=== PATIENT | male | born 1960 | race Caucasian/White ===

== ENCOUNTER → 2024-03-12 | Outpatient (CLI) | payer OTHER ==
[2024-03-12 10:39] LABS: African American GFR (CKD) >90 (>60 ml/min/1.73 sqM); Blood Urea Nitrogen 20 mg/dL (9-20); Non-African American GFR(CKD) >90 (>60 ml/min/1.73 sqM)
--- NOTE | 2024-03-12 13:45 | CT ---
EXAMINATION TYPE: CT abdomen pelvis w con DATE OF EXAM: 03/12/2024 COMPARISON: NONE HISTORY: 63-year-old male R1 0.12, LUQ pain, pt feels mass/bump (marked by BB) in abdomen. Weight los s. TECHNIQUE: Contiguous axial scanning of the abdomen and pelvis following administration of 100 ml Iso sage 300 IV contrast. Delayed images through the kidneys and coronal/sagittal reconstructions perform ed. CT DLP: 1837.30 mGycm Automated exposure control for dose reduction was used. FINDINGS: The heart is normal size without pericardial effusion. Mild emphysematous change in the vis ualized lower lungs. Some oral contrast the distal esophagus could reflect esophageal reflux. Liver borderline enlarged at 17.4 cm. No focal lesion. Portal venous system. No biliary ductal dilata tion. Cholecystectomy clips. Adrenal glands, kidneys, and pancreas within normal limits. Spleen borderline enlarged at 13.7 cm. A palpable marker is placed along the anterior left paramedian upper abdomen. No discrete underlying soft tissue abnormality or ventral abdominal wall hernia seen. Just above, there is slight anterior p rotuberance of the xiphoid process. Along the supraumbilical midline, there is a small fat-containing hernia measuring 4.3 cm craniocauda l by 2.9 cm wide throughout tiny 4 mm pinhole defect. No dilated small bowel, free fluid, or free air. Some nonspecific prominent fluid-filled small bowel loops lower abdomen which may be transient. No mesenteric or retroperitoneal adenopathy. Normal appendix. Mild overall stool burden. Sigmoid colonic diverticulosis. No pericolonic inflammato ry change. Bladder urine distended. Prostate gland enlargement measuring 5.8 cm wide with soft tissue impressing on the base of the bladder. No abnormal fluid collection in the pelvis. A couple prominent external iliac chain lymph nodes measuring up to 1.3 cm probably reactive/post inflammatory. Bones: Moderate to severe degenerative change of the hips. [facility] within the lower thoracic spine. Hype rtrophic facet arthropathy lumbar spine. Trace grade 1 retrolisthesis T12-L1 and L1-L2. IMPRESSION: 1. PALPABLE MARKER PLACED ALONG THE LEFT PARASAGITTAL ANTERIOR UPPER ABDOMEN. NO UNDERLYING DISCRETE SOFT TISSUE ABNORMALITY OR ABDOMINAL WALL HERNIA IS SEEN HERE. THERE IS SOME ANTERIOR PROTUBERANCE OF THE XIPHOID PROCESS JUST ABOVE THIS LEVEL. 2. SMALL SUPRAUMBILICAL FAT-CONTAINING VENTRAL ABDOMINAL WALL HERNIA MEASURING 4.3 CM EXTENDING THROU GH 4 MM PINHOLE DEFECT. 3. SIGMOID DIVERTICULOSIS WITHOUT ACUTE DIVERTICULITIS. 4. Prostatomegaly at 5.8 cm wide. Correlate with symptoms and with PSA values.
== END | disposition home or self-care (01) ==
LOC: RADCTMAIN 09:55
PROVIDERS: ATTEND Family Medicine
DX: K43.9 Ventral hernia without obstruction or gangrene (principal); K57.30 Diverticulosis of large intestine without perforation or abscess without bleeding; N40.0 Benign prostatic hyperplasia without lower urinary tract symptoms
CPT/HCPCS: 82565; 84520; 74177; 36415; Q9967

== ENCOUNTER → 2024-04-18 | Outpatient (CLI) | payer OTHER ==
--- NOTE | 2024-04-18 12:30 | CTL ---
EXAMINATION TYPE: CT Low Dose Lung DATE OF EXAM ORDERED: 04/18/2024 HISTORY: Current smoker, 40 pack-year history. Lung cancer screening CT DLP: 155.[address] CTDI: 4.2 mGy Automated exposure control for dose reduction was used. SCREENING VISIT: First screening visit COMPARISON: No direct comparisons TECHNIQUE: Low dose computed tomography scan was performed through the chest at 1 mm thick sections a nd reconstructed images in multiple planes at 1 mm and [address] DIAGNOSTIC QUALITY: Satisfactory FINDINGS: Nodules: Left lower lobe 4.5 mm solid pulmonary nodule adjacent to the major fissure (series 6, image 43). LUNGS: COPD: Severity: Mild upper lobe predominant centrilobular and paraseptal emphysematous changes. Fibrosis: Severity: None Lymph nodes: None Other findings: None RIGHT PLEURAL SPACE: Effusion: None Calcification: None Thickening: None Pneumothorax: None LEFT PLEURAL SPACE: Effusion: None Calcification: None Thickening: None Pneumothorax: None HEART: Heart Size: Normal Coronary Calcification: None Pericardial Effusion: None OTHER FINDINGS: Upper abdomen: Gallbladder is surgically absent. Bony thorax: No acute process. Mild multilevel degenerative disc disease. Supraclavicular region: None Other: None IMPRESSION: 1. Left lower lobe 4.5 mm solid pulmonary nodule. 2. Mild COPD changes. CT LUNG RAD AND CT CHEST RECOMMENDATION: Lung-Rad 2 Benign Appearance or Behavior: Continue annual sc reening with LDCT in 12 months. S Modifier (other clinically significant findings): None
== END | disposition home or self-care (01) ==
LOC: RADCTMAIN 10:48
PROVIDERS: ATTEND Family Medicine
DX: Z12.2 Encounter for screening for malignant neoplasm of respiratory organs (principal); R91.1 Solitary pulmonary nodule; J44.9 Chronic obstructive pulmonary disease, unspecified; F17.210 Nicotine dependence, cigarettes, uncomplicated
CPT/HCPCS: 71271

== ENCOUNTER 2024-07-04 08:27 | Day surgery (SDC) | payer OTHER ==
[2024-06-29 14:36] VITALS: BMI 29.0
[2024-07-04 09:05] VITALS: RESP 16; TEMP 97.3
[2024-07-04] MEDS: IV FLUID CONTINUATION 1,000 ML IV ONE (09:07)
[2024-07-04] MEDS: LACTATED RINGERS 1,000 ML IV SCH (09:13)
[2024-07-04 09:15] LABS: Glucose,Whole Blood 140 mg/dL (70-110)
[2024-07-04] MEDS ORDERED: LIDOCAINE 1% INJ 10MG/ML (20 ML MDV) ONE (09:45)
[2024-07-04] MEDS ORDERED: PROPOFOL 10 MG/ML 20 ML VIAL IV ONE (09:45)
--- NOTE | 2024-07-04 10:14 | P.PCN ---
Date of Procedure: 07/04/24 Procedure(s) Performed: Brief history: Patient is a pleasant 63-year-old white male scheduled for an elective upper endoscopy as well as colonoscopy as a part of evaluation of progressive weight loss, epigastric pain and screening for colon cancer Procedure performed: Esophagogastroduodenoscopy with biopsy Colonoscopy Preoperative diagnosis: Chronic epigastric pain/progressive weight loss Screening for colon cancer Anesthesia: MAC Procedure: After informed consent was obtained from the patient was brought into the endoscopy unit and IV sedation was administered by anesthesia under continuous monitoring. Initially upper endoscopy was done. The Olympus GF 160 video endoscope was inserted inserted into the mouth and esophagus intubated without any difficulty and was gradually advanced into the stomach and duodenum and carefully examined. The bulb and second part of the duodenum appeared normal. The scope was then withdrawn into the stomach adequately insufflated with air and upon careful examination the antrum had mild antral gastritis and biopsies were done from this area. Body, cardia and fundus appeared normal. The scope was then withdrawn into the esophagus. Small hiatal hernia noted. The GE junction was located at 40 cm to the incisors. It appeared regular with no eryt jan erosions or ulcerations. Proximal to the GE junction there was a 3 mm island of De La Cruz's appearing mucosa which was biopsied. Rest of the esophagus appeared normal. Patient tolerated the procedure well. At this time the patient continued to remain sedation. Initial digital rectal examination was normal. Olympus CF 160 video colonoscope was then inserted into the rectum and gradually advanced to the cecum without any difficulty. Careful examination was performed as the scope was gradually being withdrawn. The prep was fair.. The cecum, ascending colon, transverse colon, descending colon, sigmoid colon and rectum appeared normal. Scattered sigmoid diverticulosis. Retroflexion was performed in the rectum and no lesions were noted. Patient tolerated the procedure well. Impression: 1. Upper endoscopy revealed small hiatal hernia, mild antral gastritis and short segment De La Cruz's esophagus 2. Colonoscopy revealed scattered sigmoid diverticulosis but notes of colorectal neoplasia Recommendations: Findings of this examination were discussed with the patient as well as his family. Continue with omeprazole 20 mg daily and follow antireflux measures. He was advised to follow-up with the biopsy results. If the biopsy confirms the presence of De La Cruz's esophagus he can have repeat upper endoscopy in 3 years. Repeat screening colonoscopy in 10 years.
[2024-07-04 10:31] VITALS: BP 111/65; PULSE 74
== END 2024-07-04 10:48 | disposition home or self-care (01) ==
LOC: ORWHC2ENDO 08:27
PROVIDERS: ATTEND Internal Medicine Gastroenterology
CPT/HCPCS: 43239; 45378; 88305

== ENCOUNTER 2025-03-24 11:54 | Emergency (ER) | payer OTHER ==
[2025-03-24 12:17] VITALS: TEMP 98
--- NOTE | 2025-03-24 12:56 | ED ---
ENT HPI - General Chief complaint: ENT Stated complaint: Ear discomfort Time Seen by Provider: 03/24/25 12:53 Source: patient, RN notes reviewed Mode of arrival: ambulatory Limitations: no limitations - History of Present Illness Initial comments: 64-year-old male presenting for left ear pressure/pain x 3 days. States he feels as though there is wax in his ear that needs to be flushed out. Denies nasal congestion, cough, fevers, sore throat. - Related Data Home Medications Medication Instructions Recorded Confirmed Albuterol Inhaler [Ventolin Hfa 1 - 2 puff INHALATION Q6H PRN 06/29/24 07/04/24 Inhaler] Atorvastatin [Lipitor] 20 mg PO DAILY 06/29/24 07/04/24 Cyclobenzaprine [Flexeril] 10 mg PO HS 06/29/24 07/04/24 DULoxetine HCL [Drizalma Sprinkle] 60 mg PO DAILY 06/29/24 07/04/24 Dapagliflozin Propanediol [Farxiga] 5 mg PO DAILY 06/29/24 07/04/24 Gabapentin 800 mg PO TID 06/29/24 07/04/24 Omeprazole 40 mg PO DAILY 06/29/24 07/04/24 Tiotropium 2.5 Mcg/Puff [Spiriva 1 puff INHALATION DAILY 06/29/24 07/04/24 Respimat 2.5 Mcg] lisinopriL [Zestril] 5 mg PO DAILY 06/29/24 07/04/24 metFORMIN HCL 1,000 mg PO BID 06/29/24 07/04/24 Previous Rx's Medication Instructions Recorded Fluconazole [Diflucan] 150 mg PO ONCE #2 tab 02/20/25 Nystatin 100,000 Unit/ml Susp 5 ml PO QID #200 ml 02/20/25 [Mycostatin Oral Susp] Allergies Allergy/AdvReac Type Severity Reaction Status Date / Time No Known Allergies Allergy Verified 03/24/25 12:17 Review of Systems ROS Statement: Those systems with pertinent positive or pertinent negative responses have been documented in the HPI. ROS Other: All systems not noted in ROS Statement are negative. Past Medical History Past Medical History: COPD, Diabetes Mellitus, GERD/Reflux, Hyperlipidemia, Hypertension History of Any Multi-Drug Resistant Organisms: None Reported Past Surgical History: Cholecystectomy, Joint Replacement, Orthopedic Surgery, Tonsillectomy Additional Past Surgical History / Comment(s): both knees replaced Past Anesthesia/Blood Transfusion Reactions: No Reported Reaction Additional Past Anesthesia/Blood Transfusion Reaction / Comment(s): no blood transfusion Past Psychological History: No Psychological Hx Reported Smoking Status: Current every day smoker Past Alcohol Use History: None Reported Past Drug Use History: None Reported - Past Family History Mother Family Medical History: Cancer Additional Family Medical History / Comment(s): bone General Exam Limitations: no limitations General appearance: alert, in no apparent distress Head exam: Present: atraumatic, normocephalic, normal inspection Eye exam: Present: normal appearance, PERRL, EOMI. Absent: scleral icterus, conjunctival injection, periorbital swelling ENT exam: Present: normal exam, mucous membranes moist. Absent: TM's normal bilaterally (Left TM unable to be visualized due to copious amount of cerumen) Neck exam: Present: normal inspection. Absent: tenderness, meningismus, lymphadenopathy Respiratory exam: Present: normal lung sounds bilaterally. Absent: respiratory distress, wheezes, rales, rhonchi, stridor Cardiovascular Exam: Present: regular rate, normal rhythm, normal heart sounds. Absent: systolic murmur, diastolic murmur, rubs, gallop, clicks Neurological exam: Present: alert, oriented X3 Psychiatric exam: Present: normal affect, normal mood Skin exam: Present: warm, dry, intact, normal color. Absent: rash Course Vital Signs 03/24/25 12:16 Temperature 98.0 F Pulse Rate 89 Respiratory 18 Rate Blood Pressure 102/67 O2 Sat by Pulse 98 Oximetry Medical Decision Making - Medical Decision Making Was pt. sent in by a medical professional or institution (, PA, STOP ATTACHER, urgent care, hospital, or detention...) When possible be specific @ -No Did you speak to anyone other than the patient for history (EMS, parent, family, police, friend...)? What history was obtained from this source @ -No Did you review nursing and triage notes (agree or disagree)? Why? @ -I reviewed and agree with nursing and triage notes Were old charts reviewed (outside hosp., previous admission, EMS record, old EKG, old radiological studies, urgent care reports/EKG's, detention records)? Report findings @ -No old charts were reviewed Differential Diagnosis (chest pain, altered mental status, abdominal pain women, abdominal pain men, vaginal bleeding, weakness, fever, dyspnea, syncope, headache, dizziness, GI bleed, back pain, seizure, CVA, palpatations, mental health, musculoskeletal)? @ -Cerumen impaction, otitis media, otitis externa, mastoiditis EKG interpreted by me (3pts min.). @ -None X-rays interpreted by me (1pt min.). @ -None done CT interpreted by me (1pt min.). @ -None done U/S interpreted by me (1pt. min.). @ -None done What testing was considered but not performed or refused? (CT, X-rays, U/S, labs)? Why? @ -None What meds were considered but not given or refused? Why? @ -None Did you discuss the management of the patient with other professionals (professionals i.e. , PA, STOP ATTACHER, lab, RT, psych nurse, social media designer, import export manager, teacher, correction officer city or county jail, case monitor)? Give summary @ -No Was smoking cessation discussed for >3mins.? @ -No Was critical care preformed (if so, how long)? @ -No Were there social determinants of health that impacted care today? How? (Homelessness, low income, unemployed, alcoholism, drug addiction, transportation, low edu. Level, literacy, decrease access to med. care, chcf, re hab)? @ -No Was there de-escalation of care discussed even if they declined (Discuss DNR or withdrawal of care, Hospice)? DNR status @ -No What co-morbidities impacted this encounter? (DM, HTN, Smoking, COPD, CAD, Cancer, CVA, ARF, Chemo, Hep., AIDS, mental health diagnosis, sleep apnea, morbid obesity)? @ -None Was patient admitted / discharged? Hospital course, mention meds given and route, prescriptions, significant lab abnormalities, going to OR and other pertinent info. @ -Discharge. 64-year-old male with left ear pressure x 3 days. Left TM unable to be visualized due to copious amounts of cerumen. Ear lavage was performed with a significant amount of cerumen extracted. Patient reports significant improvement of symptoms and can be safely discharged. Case was discussed with my ED attending Dr. Padron Undiagnosed new problem with uncertain prognosis? @ -No Drug Therapy requiring intensive monitoring for toxicity (Heparin, Nitro, Insulin, Cardizem)? @ -No Were any procedures done? @ -No Diagnosis/symptom? @ -Left cerumen impaction Acute, or Chronic, or Acute on Chronic? @ -Acute Uncomplicated (without systemic symptoms) or Complicated (systemic symptoms)? @ -Uncomplicated Side effects of treatment? @ -No Exacerbation, Progression, or Severe Exacerbation? @ -No Poses a threat to life or bodily function? How? (Chest pain, [place], [place], pneumonia, PE, COPD, DKA, ARF, appy, cholecystitis, CVA, Diverticulitis, Homicidal, Suicidal, threat to staff... and all critical care pts) @ -No Disposition Clinical Impression: Cerumen impaction Disposition: HOME SELF-CARE Condition: Stable Additional Instructions: Let warm water run into the ear while you are in the shower. This will help to loosen the wax. You may also use [id number] eardrops to help loosen the wax. Please return to the Emergency Department if symptoms worsen or any other concerns. Is patient prescribed a controlled substance at d/c from ED?: No Referrals: Pepe Leija DO [Primary Care Provider] - 1-2 days Time of Disposition: 13:52
[2025-03-24 14:07] VITALS: BP 111/68; PULSE 76; RESP 20
== END 2025-03-24 14:07 | disposition home or self-care (01) ==
LOC: EC 11:54
DX: H61.22 Impacted cerumen, left ear (principal); F17.200 Nicotine dependence, unspecified, uncomplicated
CPT/HCPCS: 99282